=== PATIENT | female | born 1960 | race Caucasian/White ===

== ENCOUNTER → 2017-01-17 | Day surgery (SDC) | payer SELFPAY ==
[~2017-01-17] MED LIST: BYSTOLIC PO; CELEXA PO; CYMBALTA PO; LEVAQUIN500 MG PO; LYRICA PO; NORCO 5-325 TA1 EACH PO
--- NOTE | ~2017-01-17 | ER ---
PATIENT'S NAME: SHONDA TODD [facility] AGE: 56 Y [address] ROOM: [place] [address] LOCATION: [facility] [place] ADMIT DATE: 01/17/2017 ER/Outpatient Report DISCHARGE DATE: FAMILY PHYSICIAN: Av Aguila MD ATTENDING PHYSICIAN: Massimo Linder Time of arrival: 1705 hours. Time of evaluation: 1721 hours. CHIEF COMPLAINT: Right finger injury. HISTORY OF PRESENT ILLNESS: The patient is a 56-year-old female who presents to emergency department today with chief complaint of right finger injury. She reports it occurred at 1400 hours today. The patient was roping off a horse, her finger got caught and broke when she was thrown from horse. She landed on her back. Denies any loss of consciousness. No headache. No nausea or vomiting. Pain is currently 5/10 in severity in her finger. It is worse with movement and sharp. PAST MEDICAL HISTORY: Fibromyalgia, borderline lupus, depression, hypertension, stomach problems, ulcerative colitis. PAST SURGICAL HISTORY: None reported. SOCIAL HISTORY: The patient smokes 7 cigarettes per day. Denies any alcohol or illicit drug use. ALLERGIES: SULFA. MEDICATIONS: Please see list. PRIMARY CARE DOCTOR: None. REVIEW OF SYSTEMS: All systems are reviewed by myself, are negative with the exception of those discussed in HPI and past medical history. PATIENT'S NAME: SHONDA TODD [facility] AGE: 56 Y [address] ROOM: [place] [address] LOCATION: [facility] [place] ADMIT DATE: 01/17/2017 ER/Outpatient Report DISCHARGE DATE: FAMILY PHYSICIAN: Av Aguila MD ATTENDING PHYSICIAN: Massimo Linder PHYSICAL EXAMINATION: VITAL SIGNS: Weight is 72.9 kg. Blood pressure 155/68, pulse 65, respiratory rate 16, temperature 98.2, oxygen saturation 96% on room air. GENERAL: The patient is a 56-year-old female, who appears stated age. HEENT: Normocephalic, atraumatic. NECK: Supple. There is no nuchal rigidity. CARDIOVASCULAR: Regular rate and rhythm. No murmurs, rubs, or gallops. LUNGS: Clear to auscultation bilaterally. No wheezes, rales, or rhonchi. ABDOMEN: Soft, nontender, and nondistended. No rebound, rigidity, or guarding. MUSCULOSKELETAL: The patient does have obvious deformity noted to the right fourth digit. There is an open defect noted. SKIN: A 4 cm laceration to the right 4th digit. LABS AND X-RAYS: Pending. IMPRESSION: 1. Acute right 4th digit injury. 2. Please see Dr. Dumont's dictation. EMERGENCY DEPARTMENT COURSE: The patient was brought back to the examination room. Seen and evaluated by myself. IV is established. Laboratory analysis and imaging are obtained as described above. 1% lidocaine without epinephrine as well as 0.5% Marcaine without epinephrine is used for digital block. Transfer of care is made to Dr. Dumont. I have discussed the case with him. He will follow up on x-rays and discuss the case as appropriate based on x-rays. DISPOSITION: Per Dr. Dumont. DO SU MEJIA/inge /[id number] d: 01/27/17 0945 t: 01/28/17 1439, OUTPATIENT REPORT
--- NOTE | ~2017-01-17 | HP ---
PATIENT'S NAME: SHONDA TODD [facility] AGE: 56 Y [address] ROOM: [place] [address] LOCATION: [facility] [place] ADMIT DATE: 01/17/2017 History & Physical DISCHARGE DATE: FAMILY PHYSICIAN: Av Aguila MD ATTENDING PHYSICIAN: Massimo Linder Corrected copy per physician 01/20/17 AO DATE OF SERVICE: 01/17/2017 CHIEF COMPLAINT: Right 4th finger injury. HISTORY OF PRESENT ILLNESS: The patient is a 56-year-old female, who was roping today, got her finger caught in the rope, had an injury to her right hand. She was seen in the ER. X- rays showed a dislocation for the 4th PIP joint, was felt to be open. Orthopedics was consulted. The patient denies any other injuries. Specifically, she denies any head or neck consciousness. PAST MEDICAL HISTORY: Per the ER note. PAST SURGICAL HISTORY: Per the ER note. MEDICATIONS: Per the ER note. ALLERGIES: SULFA. PHYSICAL EXAMINATION: GENERAL: Well-developed, well-nourished, female in minimal distress. She was awake, alert, and cooperative with the exam. HEENT: Normocephalic, atraumatic. NECK: Supple and nontender. She has full C-spine range of motion without pain. CARDIOVASCULAR: Regular rate and rhythm. LUNGS: Clear to auscultation bilaterally. ABDOMEN: Soft, nontender, nondistended. EXTREMITIES: Unremarkable with the exception of right upper extremity. She has a laceration on the volar aspect of the right 4th PIP joint. There is obvious deformity here. She is tender to palpation. There has been a block associated with decreased light touch sensation in the hand, but there is some sensation in the tip. There is exposed bone in the wound and cap refill is less than 2 seconds. PATIENT'S NAME: SHONDA TODD [facility] AGE: 56 Y [address] ROOM: [place] [address] LOCATION: [facility] [place] ADMIT DATE: 01/17/2017 History & Physical DISCHARGE DATE: FAMILY PHYSICIAN: Av Aguila MD ATTENDING PHYSICIAN: Massimo Linder X-RAYS: X-rays were reviewed showed a dorsal dislocation of the 4th PIP joint. IMPRESSION: Right open 4th PIP joint. PLAN: Recommendation made for taking the patient to the operating room for I and D, open reduction, possible fixation, possible flexor tendon repair. Risks and benefits, as well as treatment options were explained in detail to the patient. She did wish to proceed, so she was taken the operating room on emergent basis for I and D and reduction of the open dislocation. MD LEONA ORTIZ/inge /[id number] Corrected copy per physician 01/20/17 AO D: [id number] T: [id number] HISTORY & PHYSICAL
--- NOTE | ~2017-01-17 | OR ---
PATIENT'S NAME: SHONDA TODD [facility] AGE: 56 Y [address] ROOM: [place] [address] LOCATION: [facility] [place] ADMIT DATE: 01/17/2017 OR/Procedure Report DISCHARGE DATE: FAMILY PHYSICIAN: PHYSICIAN, UNKNOWN ATTENDING PHYSICIAN: Massimo Linder SURGEON: Massimo Linder MD VIDEO PRODUCTION COORDINATOR: None. DATE OF PROCEDURE: 01/17/2017 PREOPERATIVE DIAGNOSIS: Right open 4th PIP joint dislocation. POSTOPERATIVE DIAGNOSIS: Right open 4th PIP joint dislocation. PROCEDURE: 1. I and D right open 4th PIP joint. 2. Open reduction, right 4th PIP dislocation. ANESTHESIA: MAC digital block. ESTIMATED BLOOD LOSS: Less than 10 mL. FLUID REPLACEMENT: 900 mL of crystalloid. TOURNIQUET TIME: [place] drain times about 25 minutes. COMPLICATIONS: None. DRAINS: None. INDICATIONS: The patient is a 56-year-old female, who was seen in the ER with an open right 4th PIP dislocation. Recommendation made for operative I and D, open reduction, possible fixation, possible tendon repair. Risks and benefits, as well as treatment options were explained in detail to the patient. She agreed to proceed. TECHNIQUE: The patient was brought to operating room after digital block was placed. She was placed on the operative table. All bony prominences were well padded. IV sedation was performed. The left upper extremity was prepped and draped in usual sterile fashion. To begin, a Daphne drain was placed on the proximal aspect of the finger as a tourniquet. We then thoroughly explored the wound. Both neurovascular bundles appeared to be intact of the ulnar side one was stretched really tight over the dislocated bone. The flexor tendon was also intact, all tissue appeared viable, and there was no debris. We thoroughly irrigated the wound PATIENT'S NAME: SHONDA TODD [facility] AGE: 56 Y [address] ROOM: [place] [address] LOCATION: [facility] [place] ADMIT DATE: 01/17/2017 OR/Procedure Report DISCHARGE DATE: FAMILY PHYSICIAN: PHYSICIAN, UNKNOWN ATTENDING PHYSICIAN: Massimo Linder including the joint with an Angiocath with 2 L of normal saline. After the 1st L, we reduced the joint and then continued our irrigation. We then viewed the finger fluoroscopically, and there was a very small avulsion fracture of the proximal aspect of the middle phalanx. There were no other fractures noted. She was unstable on hyperextension and with radially directed force with flexion, ulnar directed force, she was stable, but again there was enough stability during the prior fixation. Again, we thoroughly irrigated, closed with 3-0 Monocryl and 4-0 nylon. Tourniquet was released prior to closure and hemostasis was achieved. A sterile dressing was applied. The patient was placed in a well-padded, well-molded [employer] splint. She was transferred to hospital cart, taken to postanesthesia recovery room apparently in stable condition. Please note that all needle and sponge counts were correct at the end of the case. MD LEONA ORTIZ/inge /[id number] d: 01/18/17 0101 t: 03/03/17 1735, OPERATIVE SUMMARY
--- NOTE | ~2017-01-17 | ER ---
PATIENT'S NAME: SHONDA TODD [facility] AGE: 56 Y [address] ROOM: [place] [address] LOCATION: [facility] [place] ADMIT DATE: 01/17/2017 ER/Outpatient Report DISCHARGE DATE: FAMILY PHYSICIAN: PHYSICIAN, UNKNOWN ATTENDING PHYSICIAN: Massimo Linder Time of Arrival: 1705 hours. Time of Evaluation: 1805 hours. HISTORY OF PRESENT ILLNESS: The patient was initially seen by Dr. Rollins. The patient has an open dislocation of her right ring finger at the proximal interphalangeal joint due to an injury that occurred when she got bucked off a horse. Radiograph examination revealed dislocation without obvious fracture. The orthopedist was called, who arrived promptly, evaluated the patient and made arrangements to take the patient to the OR. ASSESSMENT: Open fracture of the proximal interphalangeal joint of the right ring finger. YUNI ELLISON MD JLIDA/modl /[id number] d: 01/18/17 0503 t: 01/19/17 0444, OUTPATIENT REPORT
== END | disposition disaster alternative care site (69) ==
LOC: GACC 17:05 → GSDC 19:29
PROC: 0RSW0ZZ Reposition Right Finger Phalangeal Joint, Open Approach (ICD-10-PCS; principal; 2017-01-17)
DX: S63.284A Dislocation of proximal interphalangeal joint of right ring finger, initial encounter (principal); J45.909 Unspecified asthma, uncomplicated; Z88.2 Allergy status to sulfonamides; X58.XXXA Exposure to other specified factors, initial encounter
CPT/HCPCS: J0690; J2001; J7120